=== PATIENT | female | born 1930 | race Caucasian/White ===

== ENCOUNTER 2016-10-14 11:06 | Emergency (ER) | payer MEDICARE, BC, MEDICAID ==
--- NOTE | 2016-10-14 12:02 | ER Document Report ---
ED General - General Mode of Arrival: Medic Information source: Patient, Relative TRAVEL OUTSIDE OF THE [place] IN LAST 30 DAYS: No - HPI Patient complains to provider of: Increased Heart Rate Onset: This morning Onset/Duration: Sudden, Better Associated symptoms: None <LIBERTY DUTTA - Last Filed: 10/14/16 12:09> <CAL,JOHN F - Last Filed: 10/14/16 15:00> - General Chief Complaint: Other Stated Complaint: HEART RATE PROBLEM Notes: Patient is an 86-year-old female presenting to the emergency department from [facility] with concerns of increased heart rate this morning when she was not on her oxygen. Patient's family members were worried because she felt dizzy and was laboring to breathe, although patient denies any of these symptoms. Patient states that she feels fine, and she is ready to leave. ( LIBERTY DUTTA) - Related Data Allergies/Adverse Reactions: Cephalosporins Allergy (Severe, Verified 10/14/16 11:26) Hives & Urticaria NSAIDS (Non-Steroidal Anti-Inflamma Allergy (Severe, Verified 10/14/16 11:26) Hives Iodinated Contrast Media - Oral and Allergy (Intermediate, Verified 10/14/16 11: 26) Facial swelling sulfamethoxazole [From Septra] Allergy (Intermediate, Verified 10/14/16 11:26) Generalized rash trimethoprim [From Septra] Allergy (Intermediate, Verified 10/14/16 11:26) Generalized rash Sulfa (Sulfonamide Antibiotics) Allergy (Verified 10/14/16 11:26) Past Medical History - General Information source: Patient, [facility] Records, Outside Facility Records - Social History Smoking Status: Never Smoker Frequency of alcohol use: None Drug Abuse: None Family History: Reviewed & Not Pertinent - Past Medical History Cardiac Medical History: Reports: Hx Atrial Fibrillation, Hx Congestive Heart Failure, Hx DVT, Hx Hypercholesterolemia, Hx Hypertension, Hx Heart Murmur Pulmonary Medical History: Reports: Hx Bronchitis, Hx Pneumonia Endocrine Medical History: Reports: Hx Diabetes Mellitus Type 2 Renal/ Medical History: Reports: Hx Kidney Stones GI Medical History: Reports: Hx Gastroesophageal Reflux Disease Musculoskeltal Medical History: Reports Hx Arthritis Psychiatric Medical History: Reports: Hx Depression Past Surgical History: Reports: Hx Appendectomy, Hx Cholecystectomy, Hx Hysterectomy, Hx Orthopedic Surgery - b/l knees, Hx Tonsillectomy - Immunizations Hx Diphtheria, Pertussis, Tetanus Vaccination: Yes Hx Pneumococcal Vaccination: 06/25/12 <LIBERTY DUTTA - Last Filed: 10/14/16 12:09> Review of Systems - Review of Systems Constitutional: No symptoms reported EENT: No symptoms reported Cardiovascular: No symptoms reported Respiratory: No symptoms reported Gastrointestinal: No symptoms reported Genitourinary: No symptoms reported Female Genitourinary: No symptoms reported Musculoskeletal: No symptoms reported Skin: No symptoms reported Hematologic/Lymphatic: No symptoms reported Neurological/Psychological: No symptoms reported -: Yes All other systems reviewed and negative <LIBERTY DUTTA - Last Filed: 10/14/16 12:09> Course <LIBERTY DUTTA - Last Filed: 10/14/16 12:09> - Laboratory Result Diagrams: 10/14/16 12:40 10/14/16 12:40 - Diagnostic Test Radiology reviewed: Image reviewed - Vascular congestion and cardiomegaly - EKG Interpretation by Me Rate: Normal Rhythm: A.Fib - Atrial fibrillation with rate 64-120, average 97. Borderline LVH with nonspecific ST T abnormalities some rounding consistent with digoxin use <GHADA FREDERICK - Last Filed: 10/14/16 15:00> - Re-evaluation Re-evalutation: 10/14/16 13:49 Patient's chest x-ray shows some vascular congestion and cardiomegaly. 10/14/16 14:54 Patient reexamined as she has been complaining of some sacral pain. X-rays negative. She is developing a decubiti in this region which is dressed. No signs of infection. Discussed with them further rolling techniques. She has a very sensitive balance of fluid with her CHF and her lower blood pressure already. She will need close monitoring of weights. 10/14/16 14:58 She has not been tachycardic here. Her digoxin level was good. (GHADA FREDERICK) - Vital Signs Vital signs: Temp Pulse Resp BP Pulse Ox 98.5 F 78 20 101/89 H 99 10/14/16 13:01 10/14/16 11:08 10/14/16 14:04 10/14/16 14:04 10/14/16 14:04 - Laboratory Laboratory results interpreted by me: 10/14/16 10/14/16 10/14/16 12:40 12:40 12:40 RBC 3.43 L Hgb 10.5 L Hct 31.8 L RDW 15.9 H PT 23.9 H Chloride 97 L Est GFR (Non-Af Amer) 57 L Glucose 126 H NT-Pro-B Natriuret Pep Digoxin 0.78 L 10/14/16 12:40 RBC Hgb Hct RDW PT Chloride Est GFR (Non-Af Amer) Glucose NT-Pro-B Natriuret Pep 4490 H Digoxin Discharge <LIBERTY DUTTA - Last Filed: 10/14/16 12:09> <GHADA FREDERICK - Last Filed: 10/14/16 15:00> - Discharge Clinical Impression: Tachycardia Congestive heart failure Qualifiers: Congestive heart failure type: diastolic Congestive heart failure chronicity: chronic Qualified Code(s): I50.32 - Chronic diastolic (congestive) heart failure Condition: Good Disposition: [facility] Additional Instructions: Return for worsening or concern. Scribe Attestation: 10/14/16 15:00 I personally performed the services described in the documentation, reviewed and edited the documentation which was dictated to the scribe in my presence, and it accurately records my words and actions. (GHADA FREDERICK) Scribe Documentation - Scribe Written by Carmen:: Liberty Dutta 10/14/2016 1201 acting as scribe for :: Cal <LIBERTY DUTTA - Last Filed: 10/14/16 12:09>
[2016-10-14 12:56] LABS: PROTHROMBIN TIME 23.9 SEC (11.4-15.4)
[2016-10-14 13:06] LABS: ABSOLUTE EOSINOPHILS # (AUTO) 0.3 10^3/uL (0.0-0.6); ABSOLUTE MONOCYTES (AUTO) 0.7 10^3/uL (0.1-1.4); ABSOLUTE NEUT (AUTO) 5.6 10^3/uL (1.7-8.2); BASOPHILS % (AUTO) 0.6 % (0-2); EOSINOPHILS % (AUTO) 3.8 % (0-6); HEMATOCRIT 31.8 % (36.0-47.0); HEMOGLOBIN 10.5 g/dL (12.0-15.5); HGB HCT DIFFERENCE -0.3; LYMPHOCYTES % (AUTO) 22.7 % (13-45); MEAN CORPUSCULAR HEMOGLOBIN 30.6 pg (27.0-33.4); MEAN CORPUSCULAR HGB CONC 33.1 g/dL (32.0-36.0); MEAN CORPUSCULAR VOLUME 93 fl (80-97); MONOCYTES % (AUTO) 7.8 % (3-13); RED BLOOD COUNT 3.43 10^6/uL (3.72-5.28); RED CELL DISTRIBUTION WIDTH 15.9 % (11.5-14.0); SEGMENTED NEUTROPHILS % (AUTO) 65.1 % (42-78); WHITE BLOOD COUNT 8.6 10^3/uL (4.0-10.5)
[2016-10-14 13:16] LABS: ANION GAP 12 (5-19); BLOOD UREA NITROGEN 15 mg/dL (7-20); CALCIUM 9.5 mg/dL (8.4-10.2); CARBON DIOXIDE 30 mmol/L (22-30); CHLORIDE 97 mmol/L (98-107); CREATININE RESULT 0.93 mg/dL (0.52-1.25); DIGOXIN 0.78 ng/mL (0.8-2.0); GLUCOSE 126 mg/dL (75-110); POTASSIUM 4.8 mmol/L (3.6-5.0); SODIUM 138.9 mmol/L (137-145)
[2016-10-14] MEDS ORDERED: FUROSEMIDE INJ/PF 20 MG/2 ML SDV IV ONE (13:51)
[2016-10-14] MEDS ORDERED: FUROSEMIDE 40 MG TABLET PO ONE (14:21)
[2016-10-14 17:03] VITALS: BP 124/75
--- NOTE | 2016-10-15 16:59 | EKG REPORT ---
SEVERITY:- ABNORMAL ECG - ATRIAL FIBRILLATION, V-RATE 64-120 PROBABLE LVH WITH SECONDARY REPOL ABNRM : Confirmed by: Hetal York MD 15-Oct-2016 16:57:45
== END 2016-10-14 17:04 ==
LOC: ER 11:06
DX: I50.32 Chronic diastolic (congestive) heart failure (principal); R00.0 Tachycardia, unspecified; R42 Dizziness and giddiness
CPT/HCPCS: 93005; 99285; 36415; 80162; 85025; 85610; 80048; 83880; 71010; 72220; 93010; A9270

== ENCOUNTER 2017-03-28 17:07 | Inpatient (IN) | payer MEDICARE, BC, MEDICAID ==
[2017-03-28] MEDS ORDERED: NORMAL SALINE 500 ML IV ONE (17:28)
--- NOTE | 2017-03-28 17:33 | ER Document Report ---
ED General - General Stated Complaint: ALTERED MENTAL STATUS Time Seen by Provider: 03/28/17 17:28 Notes: Shashi's note history limited secondary to altered mental status and lack of data for prehospital setting. Patient apparently was last seen normal at 2 PM and was noted to slump over during a meal. She has a history of an old stroke. There is no paperwork from the facility I do not know her medical history or medications. For some reason , I am not entirely clear, she was activated as a code stroke alert" on arrival secondary to last seen normal time of 2 but no one including nursing staff can tell me which clear deficit she had prompting this. TRAVEL OUTSIDE OF THE [place] IN LAST 30 DAYS: No - Related Data Allergies/Adverse Reactions: Cephalosporins Allergy (Severe, Verified 10/14/16 11:26) Hives & Urticaria NSAIDS (Non-Steroidal Anti-Inflamma Allergy (Severe, Verified 10/14/16 11:26) Hives Iodinated Contrast- Oral and IV Dye Allergy (Intermediate, Verified 10/14/16 11: 26) Facial swelling sulfamethoxazole [From Septra] Allergy (Intermediate, Verified 10/14/16 11:26) Generalized rash trimethoprim [From Septra] Allergy (Intermediate, Verified 10/14/16 11:26) Generalized rash Sulfa (Sulfonamide Antibiotics) Allergy (Verified 10/14/16 11:26) Past Medical History - General Cannot obtain history due to: Altered mental status - Social History Smoking Status: Unknown if Ever Smoked Family History: Reviewed & Not Pertinent - Past Medical History Cardiac Medical History: Reports: Hx Atrial Fibrillation, Hx Congestive Heart Failure, Hx DVT, Hx Hypercholesterolemia, Hx Hypertension, Hx Heart Murmur Denies: Hx Coronary Artery Disease Pulmonary Medical History: Reports: Hx Bronchitis, Hx Pneumonia Denies: Hx Tuberculosis Endocrine Medical History: Reports: Hx Diabetes Mellitus Type 2 Renal/ Medical History: Reports: Hx Kidney Stones GI Medical History: Reports: Hx Gastroesophageal Reflux Disease Musculoskeltal Medical History: Reports Hx Arthritis Psychiatric Medical History: Reports: Hx Depression Past Surgical History: Reports: Hx Appendectomy, Hx Cholecystectomy, Hx Hysterectomy, Hx Orthopedic Surgery - b/l knees, Hx Tonsillectomy. Denies: Hx Pacemaker - Immunizations Hx Diphtheria, Pertussis, Tetanus Vaccination: Yes Hx Pneumococcal Vaccination: 06/25/12 Review of Systems - Review of Systems Notes: REVIEW OF SYSTEMS PHYSICAL EXAMINATION General: Pale elderly Head: Atraumatic, normocephalic ENT: Mouth normal, oropharynx moist, unable to visualize posterior oropharynx Eyes: Conjunctiva normal, pupils equal, lids normal Neck: No JVD, supple, no guarding CVS: Normal rate, regular rhythm, no murmurs Resp: No resp distress, equal and normal breath sounds bilaterally GI: Nondistended, soft, no tenderness to palpation, no rebound or guarding Ext: No deformities, no edema, normal range of motion in upper and lower ext Back: No CVA or midline TTP Skin: No rash, warm Lymphatic: No lymphadeopathy noted Neuro: Awake, alert. Face symmetric. GCS 15. -: Yes ROS unobtainable due to patient's medical condition Course - Re-evaluation Re-evalutation: 03/28/17 17:37 Patient with a history of multiple medical issues including multi valvular cardiac disease diabetes old stroke currently in assisted living DNR/DNI presents with what appears to be a new right sided MCA syndrome. She is unable to tell a story, there is minimal records from the outside facility and I do not know what meds she is on. Her differential is broad but also includes recrudescence of old stroke, bleed, sepsis, I try to [place]. She is normoglycemic at this time. She will be given IV fluids empirically 500 cc, her scan has been done in the community with radiology who states that he sees only a right-sided old stroke and possibly hyperattenuated area in the left frontal which he does not truly think is a petechial hemorrhage but this will be and is read. I spoke with Dr. Plascencia from neurology by phone. Given the fact that the time of onset is quite unclear, we do not know if she is on anticoagulation, or no her labs, as well as her general health status and inability to make decisions, we both believe it is [place] not to give her TPA at this time. I will admit her to the hospitalist for further monitoring attempt to contact her family. He also noted to have atrial fibrillation with rapid ventricular response. This likely a symptom rather than the actual cause of her symptoms. She will be hydrated encases from dehydration. There is some ST depression which may reflect acute coronary syndrome versus demand ischemia. Given her possible petechial hemorrhage I will hold aspirin, and a troponin. 03/28/17 17:41 03/28/17 18:19 Patient's labs are pending. I am looking at her [facility] records which are now available. It shows that she is on metoprolol and Xarelto. We will give her metoprolol to slow her rate. Will admit to hospital. 03/28/17 19:15 Spoke with patient's son who is her power of tank insulator rubber and the compounding pharmacy technician here at the hospital. He thinks some of her clinical picture could be due to [place]. I tested this but stated she will still need admission for observation which he agrees to. They requested a half dose of metoprolol be given. This was given in 2.5 dose. 03/28/17 19:[address] Mata. Agrees with plan as above. - Laboratory Result Diagrams: 03/28/17 17:25 03/28/17 17:25 Laboratory results interpreted by me: 03/28/17 03/28/17 03/28/17 17:25 17:25 17:25 WBC 12.1 H Hgb 11.5 L Hct 34.6 L RDW 15.5 H PT 19.7 H APTT 36.6 H Sodium 136.7 L Chloride 95 L Carbon Dioxide 33 H Est GFR (Non-Af Amer) 59 L Glucose 179 H Direct Bilirubin 0.5 H Creatine Kinase 28 L - EKG Interpretation by Me EKG shows normal: ST-T Waves Rate: Tachycardia Rhythm: A.Fib When compared to previous EKG there are: Previous EKG unavailable Critical Care Note - Critical Care Note Total time excluding time spent on procedures (mins): 40 Comments: The above patient is critically ill. Not including procedures, but including direct re-evaluations, speaking with patient and/or consultants, interpreting results, and documenting, I spent the total amount of minute listed listed above on critical care time Discharge - Discharge Clinical Impression: Stroke Qualifiers: CVA mechanism: other Qualified Code(s): I63.8 - Other cerebral infarction Condition: Critical Disposition: ADMITTED INPATIENT Admitting Provider: Hospitalist Unit Admitted: Telemetry Referrals: MICHAEL COSTA MD [Primary Care Provider] - Follow up as needed
--- NOTE | 2017-03-28 17:36 | RADIOLOGY REPORT (SQ) ---
EXAM DESCRIPTION: CT HEAD WITHOUT COMPLETED DATE/TIME: 03/28/2017 5:13 pm REASON FOR STUDY: STROKE COMPARISON: 01/25/2014 TECHNIQUE: Axial images acquired through the brain without intravenous contrast. Images reviewed wi th bone, brain and subdural windows. Images stored on PACS. All CT scanners at this facility use dose modulation, iterative reconstruction, and/or weight based d osing when appropriate to reduce radiation dose to as low as reasonably achievable (ALARA). [facility]: Dose Right [facility]: CareDose [facility]: Dose Right [facility]: Teradose 4D [facility]: [employer] RADIATION DOSE: TOTAL EXAM DLP: 1034 mGy cm LIMITATIONS: None. FINDINGS: VENTRICLES: Prominent ventricles secondary to involutional atrophy. CEREBRUM: There is an old right occipital infarct. There are extensive areas of decreased attenuatio n in the white matter tracts. There is no definite acute hemorrhage, contusion, or subdural hematoma . There is a limited area of increased attenuation in the anterior aspect the left adventist lobe seen best on image 13 series 2. This appearance is felt to be artifactual rather than represent petechial hemorrhage. There is no midline shift or mass effect. Cortical atrophy is present. CEREBELLUM: No masses. No hemorrhage. No alteration of density. No evidence for acute infarction. EXTRAAXIAL SPACES: No fluid collections. No masses. ORBITS AND GLOBE: No intra- or extraconal masses. Normal contour of globe without masses. CALVARIUM: No fracture. PARANASAL SINUSES: No fluid or mucosal thickening. SOFT TISSUES: No mass or hematoma. OTHER: No other significant finding. IMPRESSION: Involutional changes of aging with chronic microvascular ischemia and old right occipita l infarct. Cannot entirely exclude a small area of petechial hemorrhage in the anterior aspect of th e left temporal lobe. See above discussion. EVIDENCE OF ACUTE STROKE: NO. COMMENT: Findings were discussed with the ordering physician at 1730 hours on this date. Quality ID # [id number]: Final reports with documentation of one or more dose reduction techniques (e.g., Au tomated exposure control, adjustment of the mA and/or kV according to patient size, use of iterative reconstruction technique) TECHNICAL DOCUMENTATION: JOB ID: [id number]- All Rights Reserved
--- NOTE | 2017-03-28 17:38 | RADIOLOGY REPORT (SQ) ---
EXAM DESCRIPTION: CHEST SINGLE VIEW COMPLETED DATE/TIME: 03/28/2017 5:17 pm REASON FOR STUDY: STROKE COMPARISON: 10/14/2016 EXAM PARAMETERS: NUMBER OF VIEWS: One view. TECHNIQUE: Single frontal radiographic view of the chest acquired. RADIATION DOSE: NA LIMITATIONS: None. FINDINGS: LUNGS AND PLEURA: Chronic interstitial lung changes are seen. There is no pulmonary infil trate or pleural effusion. MEDIASTINUM AND HILAR STRUCTURES: No masses. Contour normal. HEART AND VASCULAR STRUCTURES: Cardiomegaly with mild pulmonary vascular congestion. There is no pul monary edema. BONES: No acute findings. HARDWARE: None in the chest. OTHER: No other significant finding. IMPRESSION: Cardiomegaly with mild pulmonary vascular congestion but no pulmonary edema. Chronic nery ng changes. TECHNICAL DOCUMENTATION: JOB ID: [id number]
[2017-03-28 17:50] LABS: PARTIAL THROMBOPLASTIN TIME 36.6 SEC (23.5-35.8)
[2017-03-28 17:52] LABS: PROTHROMBIN TIME 19.7 SEC (11.4-15.4)
[2017-03-28 17:55] LABS: ABSOLUTE BASOPHILS # (AUTO) 0.1 10^3/uL (0.0-0.2); ABSOLUTE EOSINOPHILS # (AUTO) 0.1 10^3/uL (0.0-0.6); ABSOLUTE LYMPHOCYTES (AUTO) 3.9 10^3/uL (0.5-4.7); ABSOLUTE MONOCYTES (AUTO) 0.6 10^3/uL (0.1-1.4); ABSOLUTE NEUT (AUTO) 7.3 10^3/uL (1.7-8.2); BASOPHILS % (AUTO) 0.9 % (0-2); EOSINOPHILS % (AUTO) 1.2 % (0-6); HEMATOCRIT 34.6 % (36.0-47.0); HEMOGLOBIN 11.5 g/dL (12.0-15.5); HGB HCT DIFFERENCE -0.1; LYMPHOCYTES % (AUTO) 31.9 % (13-45); MEAN CORPUSCULAR HGB CONC 33.2 g/dL (32.0-36.0); MEAN CORPUSCULAR VOLUME 90 fl (80-97); MONOCYTES % (AUTO) 5.3 % (3-13); RED BLOOD COUNT 3.82 10^6/uL (3.72-5.28); RED CELL DISTRIBUTION WIDTH 15.5 % (11.5-14.0); SEGMENTED NEUTROPHILS % (AUTO) 60.7 % (42-78); WHITE BLOOD COUNT 12.1 10^3/uL (4.0-10.5)
[2017-03-28 18:15] LABS: ALANINE AMINOTRANSFERASE 24 U/L (9-52); ALBUMIN 3.9 g/dL (3.5-5.0); ALKALINE PHOSPHATASE 73 U/L (38-126); ANION GAP 9 (5-19); ASPARTATE AMINO TRANSFERASE 22 U/L (14-36); BILIRUBIN,DIRECT 0.5 mg/dL (0.0-0.4); BILIRUBIN,TOTAL 0.8 mg/dL (0.2-1.3); BLOOD UREA NITROGEN 19 mg/dL (7-20); CARBON DIOXIDE 33 mmol/L (22-30); CHLORIDE 95 mmol/L (98-107); CREATINE KINASE 28 U/L (30-135); GLUCOSE 179 mg/dL (75-110); POTASSIUM 4.8 mmol/L (3.6-5.0); SODIUM 136.7 mmol/L (137-145); TOTAL PROTEIN 7.5 g/dL (6.3-8.2)
[2017-03-28] MEDS ORDERED: METOPROLOL TARTRATE PF/INJ 5 MG/5 ML SDV IV ONE ×2 (18:18→19:16)
[2017-03-28 18:26] LABS: CREATINE KINASE MB 0.87 ng/mL (<4.55); TROPONIN I 0.032 ng/mL
[2017-03-28 20:04] LABS: ADD ON TESTING BLD IN LAB ACKNOWLEDGE
[2017-03-28 20:16] LABS: MAGNESIUM 1.8 mg/dL (1.6-2.3)
[2017-03-28 20:16] LABS: APPEARANCE,URINE CLOUDY; BILIRUBIN,URINE NEGATIVE (NEGATIVE); GLUCOSE, URINE NEGATIVE (NEGATIVE); KETONES,URINE NEGATIVE (NEGATIVE); LEUKOCYTE ESTERASE,URINE SMALL (NEGATIVE); NITRITE,URINE NEGATIVE (NEGATIVE); PROTEIN,URINE NEGATIVE (NEGATIVE); URINE SPECIFIC GRAVITY 1.005; UROBILINOGEN,URINE NEGATIVE mg/dL (<2.0)
[2017-03-28] MEDS ORDERED: DEXTROSE 50%-WATER 25 GM/50 ML DISP.SYRIN IV PRN ×2 (23:44)
[2017-03-28] MEDS ORDERED: DEXTROSE 40% GEL 15 GM TUBE PO PRN ×2 (23:44)
[2017-03-28] MEDS ORDERED: GLUCAGON,HUMAN RECOMB 1 MG INJ IM PRN (23:44)
[2017-03-28] MEDS ORDERED: INSULIN LISPRO 100 UNIT/ML 3 ML VIAL SUBCUT PRN (23:44)
[2017-03-29] MEDS ORDERED: ENALAPRILAT DIHYDRATE INJ/PF 1.25 MG/1 ML SDV IV PRN (01:15)
[2017-03-29] MEDS ORDERED: ACETAMINOPHEN 650 MG SUPP.RECT PR PRN (01:40)
[2017-03-29] MEDS ORDERED: PROMETHAZINE HCL 25 MG SUPP.RECT PR PRN ×2 (01:41→17:21)
[2017-03-29] MEDS: NORMAL SALINE 1000 ML 1,000 ML IV PRN ×2 (02:49→04:13)
[2017-03-29 06:32] LABS: ABSOLUTE BASOPHILS # (AUTO) 0.1 10^3/uL (0.0-0.2); ABSOLUTE LYMPHOCYTES (AUTO) 1.3 10^3/uL (0.5-4.7); ABSOLUTE MONOCYTES (AUTO) 0.3 10^3/uL (0.1-1.4); ABSOLUTE NEUT (AUTO) 8.2 10^3/uL (1.7-8.2); HEMATOCRIT 30.2 % (36.0-47.0); HEMOGLOBIN 10.4 g/dL (12.0-15.5); LYMPHOCYTES % (AUTO) 12.8 % (13-45); MEAN CORPUSCULAR HEMOGLOBIN 30.5 pg (27.0-33.4); MEAN CORPUSCULAR HGB CONC 34.4 g/dL (32.0-36.0); MEAN CORPUSCULAR VOLUME 89 fl (80-97); MONOCYTES % (AUTO) 3.1 % (3-13); RED BLOOD COUNT 3.41 10^6/uL (3.72-5.28); RED CELL DISTRIBUTION WIDTH 15.8 % (11.5-14.0); SEGMENTED NEUTROPHILS % (AUTO) 83.1 % (42-78); WHITE BLOOD COUNT 9.9 10^3/uL (4.0-10.5)
[2017-03-29 06:47] LABS: ANION GAP 8 (5-19); BLOOD UREA NITROGEN 18 mg/dL (7-20); CALCIUM 9.4 mg/dL (8.4-10.2); CARBON DIOXIDE 32 mmol/L (22-30); CHLORIDE 96 mmol/L (98-107); CHOLESTEROL 222.85 mg/dL (0-200); CREATININE RESULT 0.89 mg/dL (0.52-1.25); Direct HDL 38 mg/dL (>40); GLUCOSE 214 mg/dL (75-110); POTASSIUM 4.1 mmol/L (3.6-5.0); SODIUM 136.3 mmol/L (137-145); TRIGLYCERIDES 125 mg/dL (<150)
[2017-03-29 06:57] LABS: DIRECT LDL 159 mg/dL (<100)
[2017-03-29] MEDS ORDERED: AZTREONAM INJ 1 GM VIAL IV SCH (07:00)
[2017-03-29] MEDS ORDERED: LABETALOL HCL INJ 20 MG/4 ML DISP.SYRIN IV PRN (07:53)
[2017-03-29] MEDS ORDERED: ALPRAZOLAM 0.25 MG TABLET PO PRN (07:53)
[2017-03-29] MEDS ORDERED: POLYVINYL ALCOHOL 1.4% OPH SOLN 15 ML OU PRN (07:53)
--- NOTE | 2017-03-29 07:54 | PDOC H&P ---
History of Present Illness Admission Date/PCP: 03/29/17 01:15 MICHAEL COSTA Patient complains of: Altered mental status History of Present Illness: MEDINA GILBERT is a 87 year old female with a rather complicated chronic medical history, to be better delineated under past medical history, and with a reported history of a prior stroke which has left her with left- sided weakness who presents to the emergency room for evaluation of above complaint. Patient has been discussed with emergency room physician who evaluated the patient. Patient, while maintaining her airway, is poorly responsive to her name being called and is able to provide no history whatsoever in terms of acute or chronic events, review of systems, personal habits, family history, etc. No friends or family are present. Old inpatient records are reviewed. According to emergency room notes, she was last seen normal approximately 2 PM on the fourth. Was noted to have slumped over during a meal. No further information available this point in time. According to my discussion with emergency room physician, he found her to have right-sided weakness. Was noted to be in atrial fibrillation with rapid ventricular response, which responded nicely to low-dose intravenous metoprolol. Has chronic atrial fibrillation, on Xarelto for same. Hospitalized on our service the through 16 December of last year with final diagnoses including critical aortic stenosis, severe mitral and tricuspid regurgitation, systolic congestive heart failure, diabetes mellitus, hypertension, history of DVT atrial fibrillation and anemia. Osteoarthritis also. History and physical and transfer summary have been reviewed. Dictation via voice recognition software. Laboratory results are listed in [employer] and are reviewed. X-ray summary results are listed below, with full report(s) reviewed. . EKG reviewed. Social history/personal habits: Reportedly lives at an assisted living center. No further information available this point in time. Allergies/adverse reactions are listed in [employer] and are reviewed. Home medications initially autopopulated into [employer] may not accurately reflect patient's true medications, dosages, and/or frequencies. biosolids management technician to reconcile medications. Unfortunately, patient cannot provide any information related to medications/ dosages/frequencies. REVIEW OF SYSTEMS: See history and present illness. No further information available this point in time. PHYSICAL EXAMINATION: 4 feet 11 inches tall. 63.9 kg. BMI 28.5 kg/m. Blood pressure 157/94. Pulse 114 and slightly irregular. Temperature 97.8. Respirations are 16 and unlabored. 94% saturation on 2 L oxygen per nasal cannula. Somewhat overweight otherwise well-nourished well-developed elderly female who appears approximately her stated age. Somnolent. Does not respond when her name is called. However, does perform slight left handgrip and wiggling of her left toes upon request. Floor nurse Liz is present. Skin is warm and dry. No grossly obvious evidence of rash in areas of skin examined. No subcutaneous nodules palpated. ENT: Hearing difficult to adequately evaluate due to her current status. No shay sign. Eyes: No scleral icterus. Pupils equal and reactive to light at 4 mm. Sublimity conjunctivae. No raccoon eyes. Neck is nontender to palpation. Midline trachea. No palpable thyroid nodule mass enlargement or tenderness. Lymphatic: No palpable cervical or clavicular nodes. Neck and lymphatic exams limited by patient body habitus. Psychiatric: Cannot be adequately evaluated due to her current status. See above comments and History and Present Illness. Lungs: Auscultation reveals clear and equal breath sounds bilaterally. No use of accessory respiratory muscles. Cardiovascular: Heart regular rate and rhythm, without gallop murmur or rub. No carotid or abdominal aortic bruits. Mild bilateral symmetric ankle and pedal edema. Faintly palpable dorsalis pedis pulses. Abdomen:soft slightly distended nontender with positive bowel sounds. Unable to adequately evaluate abdomen for masses or organomegaly due to distention. Extremities: Hands and feet are warm and dry. No calf tenderness to compression. No grossly obvious visual evidence of calf swelling. Gentle manipulation of upper and lower extremities fails to reveal any obvious evidence of injury or instability to involved major joints. Neuro: Cranial Nerves cannot be adequately evaluated due to her current status. Light touch cannot be adequately evaluated due to her current status. Slight left hand java software developer and slight wiggling of the left toes to voice request. No response when similar request made for the right side. Patellar reflexes absent. Absent Babinski. No nystagmus. Past Medical History Past Medical History: Information per current and old records. Patient can't provide any information. Cardiac Medical History: Reports: Atrial Fibrillation, Congestive Heart Failure , DVT, Hyperlipidema, Hypertension, Other - Critical aortic stenosis with severe mitral and tricuspid regurgitation Denies: Coronary Artery Disease Pulmonary Medical History: Reports: Bronchitis, Pneumonia Denies: Tuberculosis Neurological Medical History: Reports: Ischemic CVA Endocrine Medical History: Reports: Diabetes Mellitus Type 2 GI Medical History: Reports: Gastroesophageal Reflux Disease Musculoskeltal Medical History: Reports: Arthritis Psychiatric Medical History: Reports: General Anxiety Disorder Denies: Depression Hematology: Reports: Anemia Past Surgical History Past Surgical History: Information per current and old records. Patient can't provide any information. Past Surgical History: Reports: Appendectomy, Cholecystectomy, Hysterectomy, Orthopedic Surgery - b/l knees, Tonsillectomy Social History Information Source: Emergency Med Personnel, [facility] Records Lives with: Skilled Nursing Smoking Status: Never Smoker Frequency of Alcohol Use: None Hx Recreational Drug Use: No Drugs: None Hx Prescription Drug Abuse: No - Advance Directive Resuscitation Status: Do Not Resuscitate Surrogate healthcare decision maker:: Likely her son Patricio pharmacist at [facility] Family History Family History: Reviewed & Not Pertinent Parental Family History Reviewed: No - Patient not able to provide any information. Children Family History Reviewed: No - Patient not able to provide any information. Sibling(s) Family History Reviewed.: No - Patient not able to provide any information. Medication/Allergy Home Medications: Alprazolam [Xanax 0.25 mg Tablet] 0.25 mg PO HSP PRN 03/28/17 Cholecalciferol (Vitamin D3) [Vitamin D3 2000 unit Tablet] 2,000 unit PO DAILY 03/28/17 Citalopram Hydrobromide [Celexa 20 mg Tablet] 20 mg PO DAILY 03/28/17 Cyanocobalamin (Vitamin B-12) [Vitamin B-12 1000 Mcg Tablet] 1 tab PO DAILY 10/09 Digoxin [Lanoxin 0.125 mg Tablet] 0.125 mg PO Q48H 03/28/17 Docusate Sodium [Colace 100 mg Capsule] 100 mg PO DAILY 03/28/17 Furosemide [Lasix 40 mg Tablet] 40 mg PO DAILY 03/28/17 Hydrocodone/Acetaminophen [[place] 5-325 mg Tablet] 0.5 tab PO BIDP PRN 03/28/17 Losartan Potassium [Cozaar 50 mg Tablet] 50 mg PO NOON 03/28/17 Metformin HCl [Glucophage 500 mg Tablet] 500 mg PO BIDBS 03/28/17 Metoprolol Succinate [Toprol Xl 25 mg Tab.sr] 25 mg PO Q12 03/28/17 Omeprazole 20 mg PO QAM 03/28/17 Polyvinyl Alcohol [Liquitears 1.4% Ophth Soln 15 ml] 1 drop OU HSP PRN 03/28/17 Polyvinyl Alcohol [Liquitears 1.4% Ophth Soln 15 ml] 1 drop OU QID 03/28/17 Rivaroxaban [Xarelto 15 mg Tablet] 15 mg PO QAM 03/28/17 Allergies/Adverse Reactions: Cephalosporins Allergy (Severe, Verified 03/28/17 20:06) Hives & Urticaria NSAIDS (Non-Steroidal Anti-Inflamma Allergy (Severe, Verified 03/28/17 20:06) Hives Iodinated Contrast- Oral and IV Dye Allergy (Intermediate, Verified 03/28/17 20: 06) Facial swelling sulfamethoxazole [From Febra] Allergy (Intermediate, Verified 03/28/17 20:06) Generalized rash trimethoprim [From Febra] Allergy (Intermediate, Verified 03/28/17 20:06) Generalized rash Sulfa (Sulfonamide Antibiotics) Allergy (Verified 03/28/17 20:06) Physical Exam Vital Signs: Temp Pulse Resp BP Pulse Ox 99.1 F 127 H 22 H 185/95 H 98 03/29/17 04:00 03/29/17 04:00 03/29/17 04:00 03/29/17 04:08 03/29/17 04:00 Intake & Output 03/28/17 03/29/17 03/30/17 00:59 00:59 00:59 Intake Total 220 Balance 220 Weight 63.9 kg Results Laboratory Results: 03/29/17 06:18 03/29/17 06:18 03/29/17 03/29/17 06:18 06:18 WBC 9.9 RBC 3.41 L Hgb 10.4 L Hct 30.2 L MCV 89 MCH 30.5 MCHC 34.4 RDW 15.8 H Plt Count 292 Seg Neutrophils % 83.1 H Lymphocytes % 12.8 L Monocytes % 3.1 Eosinophils % 0.0 Basophils % 1.0 Absolute Neutrophils 8.2 Absolute Lymphocytes 1.3 Absolute Monocytes 0.3 Absolute Eosinophils 0.0 Absolute Basophils 0.1 Sodium 136.3 L Potassium 4.1 Chloride 96 L Carbon Dioxide 32 H Anion Gap 8 BUN 18 Creatinine 0.89 Est GFR ( Amer) > 60 Est GFR (Non-Af Amer) > 60 Glucose 214 H Calcium 9.4 Triglycerides 125 Cholesterol 222.85 H LDL Cholesterol Direct 159 H VLDL Cholesterol 25.0 HDL Cholesterol 38 L Impressions: Chest X-Ray 03/28/17 00:00 IMPRESSION: Cardiomegaly with mild pulmonary vascular congestion but no pulmonary edema. Chronic lung changes. Head CT 03/28/17 00:00 IMPRESSION: Involutional changes of aging with chronic microvascular ischemia and old right occipital infarct. Cannot entirely exclude a small area of petechial hemorrhage in the anterior aspect of the left temporal lobe. See above discussion. EVIDENCE OF ACUTE STROKE: NO. Assessment & Plan - Diagnosis (1) Anticoagulated Is this a current diagnosis for this admission?: Yes Plan: Resume home medications as appropriate once these have been determined and reviewed. Please refer to comments made by radiologist on her CT scan of brain concerning a small area that could possibly be petechial hemorrhage, although overall he felt this was artifact. Emergency room physician also discussed this with radiologist. Discussed with day hospitalist team. (2) DNR (do not resuscitate) Is this a current diagnosis for this admission?: Yes Plan: Portable document on chart. Will honor this directive. (3) Right hemiplegia Is this a current diagnosis for this admission?: Yes (4) Acute focal neurological deficit Is this a current diagnosis for this admission?: Yes Plan: Patient will be placed admitted under CVA/TIA protocol. Multiple imaging procedures, intracranial, vascular, and cardiac. lipid panel. Mild permissive hypertension, with adjustment of upper parameters due to her anticoagulated status. Knee high SCDs for DVT prophylaxis; with patient on Xarelto, will forego Lovenox or heparin at this point in time.. Time spent in evaluation and management of patient: 65 minutes (5) History of DVT (deep vein thrombosis) Is this a current diagnosis for this admission?: Yes (6) Acute encephalopathy Is this a current diagnosis for this admission?: Yes Plan: Hopefully will improve with time and treatment. Likely secondary in large part to suspected stroke; suspected urinary tract infection may also be playing a part. (7) UTI (urinary tract infection) Qualifiers: Urinary tract infection type: site unspecified Is this a current diagnosis for this admission?: Yes Plan: Blood and urine cultures. Aztreonam. (8) Atrial fibrillation Qualifiers: Atrial fibrillation type: chronic Qualified Code(s): I48.2 - Chronic atrial fibrillation Is this a current diagnosis for this admission?: Yes Plan: Resume home medications as appropriate once these have been determined and reviewed. (9) Diabetes mellitus Qualifiers: Diabetes mellitus type: type 2 Diabetes mellitus complication status: with unspecified complications Diabetes mellitus termite helper insulin use: unspecified termite helper insulin use status Qualified Code(s): E11.8 - Type 2 diabetes mellitus with unspecified complications Is this a current diagnosis for this admission?: Yes Plan: Accu-Cheks with appropriate sliding scale coverage. Resume home medications as appropriate once these have been determined and reviewed. (10) Atrial fibrillation with RVR Is this a current diagnosis for this admission?: Yes Plan: Responded nicely to IV fluids and parenteral metoprolol. (11) Valvular heart disease Is this a current diagnosis for this admission?: Yes - Time Time Spent: 50 to 70 Minutes Anticipated discharge: SNF Within: within 72 hours - Inpatient Certification Based on my medical assessment, after consideration of the patient's comorbidities, presenting symptoms, or acuity I expect that the services needed warrant INPATIENT care.: Yes I certify that my determination is in accordance with my understanding of Medicare's requirements for reasonable and necessary INPATIENT services [42 CFR 412.3e].: Yes Medical Necessity: Significant Comorbidiites Make Outpatient Treatment Too Risky , Need For IV Fluids, Need For Continuous Telemetry Monitoring, Need for Neurological Checks, Risk of Diagnosis Which Will Require Inpatient Eval/Care/ Monitoring Post Hospital Care: D/C or Transfer Summary - Plan Summary Plan Summary: Patient currently completely n.p.o., due to food from her midday meal being found pocketed in her mouth during examination. Speech therapy consult.
[2017-03-29] MEDS ORDERED: DIGOXIN INJ 0.5 MG/2 ML AMPULE IV SCH (08:00)
[2017-03-29] MEDS ORDERED: LANSOPRAZOLE 15 MG TAB.RAP.DR PO ONE (09:00)
--- NOTE | 2017-03-29 09:09 | EKG REPORT ---
SEVERITY:- ABNORMAL ECG - ATRIAL FIBRILLATION, V-RATE 101-172 PROBABLE LVH WITH SECONDARY REPOL ABNRM ST DEPRESSION, PROBABLY RATE RELATED : Confirmed by: Hetal York MD 29-Mar-2017 09:08:20
[2017-03-29] MEDS ORDERED: AZTREONAM 1 GM in DEXTROSE 5%-WATER 50 ML IV SCH (10:00)
[2017-03-29] MEDS ORDERED: CYANOCOBALAMIN (VITAMIN B-12) 1,000 MCG TABLET PO SCH (10:00)
[2017-03-29] MEDS ORDERED: CHOLECALCIFEROL (D3) 1,000 UNIT TABLET PO SCH (10:00)
[2017-03-29] MEDS ORDERED: DOCUSATE SODIUM 100 MG CAPSULE PO SCH (10:00)
[2017-03-29] MEDS ORDERED: (PENDING PHARMACY ID) (Cholecalciferol (Vitamin D3) [Vitamin D3 2000 Unit Tablet] 2,000 UN PO SCH (10:00)
[2017-03-29] MEDS ORDERED: FUROSEMIDE 40 MG TABLET PO SCH (10:00)
[2017-03-29] MEDS ORDERED: CITALOPRAM HYDROBROMIDE 20 MG TABLET PO SCH (10:00)
--- NOTE | 2017-03-29 11:17 | RADIOLOGY REPORT (SQ) ---
EXAM DESCRIPTION: CAROTID DOPPLER COMPLETED DATE/TIME: 03/29/2017 10:15 am REASON FOR STUDY: tia vs cva COMPARISON: None. TECHNIQUE: Grayscale ultrasound, Doppler velocity and spectra, and color Doppler images acquired of the extra-cranial carotid and vertebral arteries. Images stored on PACS. LIMITATIONS: Patient motion FINDINGS: RIGHT CAROTID CCA Velocities: Within normal limits. ICA Velocities Peak systolic 1.02 m/s. End diastolic 0.80 m/s. Proximal ICA/CCA peak systolic ratio 1.3 There is significant plaque at the right internal carotid artery. Velocities could not be accurately assessed due to patient motion. Recommend MRA or CTA for further characterization. LEFT CAROTID CCA Velocities: Within normal limits. ICA Velocities Peak systolic 0.62 m/s. End diastolic 0.14 m/s. Proximal ICA/CCA peak systolic ratio 1.4. Spectra normal. No significant plaque. VERTEBRAL ARTERIES: Antegrade flow. Normal waveforms. SUBCLAVIAN ARTERIES: No finding. OTHER: No other significant finding. IMPRESSION: Limited evaluation of the right internal carotid artery secondary to patient motion. Re commend CTA or MRA for further characterization. There is significant plaque. There is no hemodynam ically significant stenosis on the left. COMMENT: Quality ID #[id number]: Velocity criteria are extrapolated from the diameter data as defined by t he Society of Radiologists in Ultrasound Consensus Conference. Radiology 2003: 229; 340-346. TECHNICAL DOCUMENTATION: JOB ID: [id number] [employer]- All Rights Reserved
[2017-03-29] MEDS: POLYVINYL ALCOHOL 1.4% OPH SOLN 15 ML OU SCH ×4 (11:59→22:07)
[2017-03-29] MEDS ORDERED: LOSARTAN POTASSIUM 50 MG TABLET PO SCH (12:00)
--- NOTE | 2017-03-29 13:02 | XCELERA REPORT ---
[address] [address] Transthoracic Echocardiogram Report Name: MEDINA GILBERT Age: 87 yrs Gender: Female : 1930 Patient Status: Inpatient Patient Location: [address] [place] [address] Study Date: 03/29/2017 08:18 AM Height: 59 in Weight: 137 lb BSA: 1.6 m2 Procedure: A complete two-dimensional transthoracic echocardiogram was performed (2D, M-mode, spectral and color flow Doppler). The study was technically difficult with many images being suboptimal in quality. Reason For Study: tia vs cva Ordering Physician: NTIIN HILL Performed By: Gloria Montgomery Interpretation Summary The study was technically difficult with many images being suboptimal in quality. The left ventricular ejection fraction is preserved. Doppler measurements suggest reversible restrictive left ventricular relaxation, which is associated with grade III/IV or moderate diastolic dysfunction There is moderate concentric left ventricular hypertrophy. The left ventricle is grossly normal size. Regional wall motion abnormalities cannot be excluded due to limited visualization. Not all wall segments were well visualized. The right ventricle is mild to moderately dilated. Right ventricular function cannot be assessed due to poor image quality. The left atrium is moderately dilated. The right atrium is moderately dilated. There is a moderate to severe amount of mitral regurgitation There is no mitral valve stenosis. There is moderate to severe aortic stenosis There is a peak gradient of 55-60, mean 30-35 mm of Hg. There is a mild amount of aortic regurgitation There is a mild amount of tricuspid regurgitation Right ventricular systolic pressure is estimated to be elevated at 40- 50mmHg. There is moderate pulmonary hypertension by echo Patient in A Fib during the study. No definite cardiac source of CVA/TIA noted on this particular trans- thoracic study. Consider AKSHAT if clinically indicated. May consider mobile cardiac telemetry monitoring (MCT) for ruling out transient AFIB. MMode/2D Measurements & Calculations RVDd: 2.5 cm LVIDd: 3.5 cm FS: 13.8 % Ao root diam: 2.4 cm IVSd: 1.3 cm LVIDs: 3.0 cm EDV(Teich): 50.8 ml LVPWd: 1.3 cm ESV(Teich): 35.4 ml Ao root area: 4.4 cm2 EF(Teich): 30.3 % LA dimension: 4.4 cm LVOT diam: 1.6 cm LVOT area: 2.1 cm2 Doppler Measurements & Calculations MV E max thony: MV P1/2t max thony: Ao V2 max: AI max thony: 148.6 cm/sec 148.6 cm/sec 382.6 cm/sec 370.9 cm/sec MV P1/2t: 45.7 msec Ao max PG: AI max PG: MVA(P1/2t): 4.8 cm2 58.6 mmHg 55.0 mmHg MV dec slope: Ao V2 mean: AI dec slope: 952.6 cm/sec2 272.0 cm/sec 285.9 cm/sec2 Ao mean PG: AI P1/2t: 33.2 mmHg 380.0 msec Ao V2 VTI: 69.9 cm RENEE(I,D): 0.40 cm2 RENEE(V,D): 0.36 cm2 LV V1 max PG: SV(LVOT): 27.9 ml PA V2 max: TR max thony: 1.7 mmHg 54.8 cm/sec 319.1 cm/sec LV V1 mean PG: PA max PG: TR max P.0 mmHg 1.2 mmHg 40.7 mmHg LV V1 max: 66.1 cm/sec LV V1 mean: 46.6 cm/sec LV V1 VTI: 13.5 cm Left Ventricle The left ventricle is grossly normal size. There is moderate concentric left ventricular hypertrophy. The left ventricular ejection fraction is preserved. Doppler measurements suggest reversible restrictive left ventricular relaxation, which is associated with grade III/IV or moderate diastolic dysfunction. Regional wall motion abnormalities cannot be excluded due to limited visualization. Not all wall segments were well visualized. Right Ventricle The right ventricle is mild to moderately dilated. There is normal right ventricular wall thickness. Right ventricular function cannot be assessed due to poor image quality. Atria The right atrium is moderately dilated. The left atrium is moderately dilated. Interarterial septum not well visualized and not well dopplered. Cannot comment on ASD/PFO presence. Mitral Valve There is mild to moderate mitral leaflet calcification. There is moderate mitral annular calcification. There is no mitral valve stenosis. There is a moderate to severe amount of mitral regurgitation. Aortic Valve The aortic valve is heavily calcified. There is moderate to severe aortic stenosis. There is a peak gradient of 55-60, mean 30-35 mm of Hg. There is a mild amount of aortic regurgitation. Tricuspid Valve The tricuspid valve is not well visualized secondary to technical limitations. There is no tricuspid stenosis. There is a mild amount of tricuspid regurgitation. Right ventricular systolic pressure is estimated to be elevated at 40-50mmHg. There is moderate pulmonary hypertension by echo. Pulmonic Valve The pulmonic valve is not well visualized. Great Vessels The aortic root is not well visualized. The inferior vena cava appeared normal and decreased > 50% with respiration (RAP 5-10 mmHg). Effusions There is no pericardial effusion. Incidental Findings No definite cardiac source of CVA/TIA noted on this particular trans- thoracic study. Consider AKSHAT if clinically indicated. May consider mobile cardiac telemetry monitoring (MCT) for ruling out transient AFIB. Patient in A Fib during the study. : NIITN HILL > Angella Casillas
[2017-03-29] MEDS ORDERED: NORMAL SALINE 1000 ML 1,000 ML IV PRN (14:34)
--- NOTE | 2017-03-29 14:47 | RADIOLOGY REPORT (SQ) ---
EXAM DESCRIPTION: MRI HEAD WITHOUT; MRA HEAD WITHOUT COMPLETED DATE/TIME: 03/29/2017 2:27 pm REASON FOR STUDY: new right sided flaccid; CVA COMPARISON: CT brain 03/28/2017 TECHNIQUE: Multiplanar imaging includes non-contrasted T1, T2, FLAIR, and diffusion with ADC map seq uences. Images stored on PACS. MRA exam [place] was also performed, source data and maximum intensity projected images were reviewed. LIMITATIONS: None. FINDINGS: ANATOMY: No congenital anomalies. Normal vascular flow voids. Pituitary fossa normal. CSF SPACES: Normal in size and contour. No hemorrhage. CEREBRUM: Large acute left MCA distribution infarct involving nearly the entire frontal lobe, the ent alfredo temporal lobe, and majority of the parietal lobe. There is local mass effect with sulcal effacem ent and effacement of the left sylvian fissure. There is 4 mm of [id number] midline shift. An old right bold watershed infarct involving the frontal lobe, parietal and posterior temporal regio ns with widespread encephalomalacia is present. POSTERIOR FOSSA: No signal alteration. No hemorrhage. No edema, masses or mass effect. Internal michele tory canals, cerebello-pontine angles, mastoids normal. DIFFUSION IMAGING: Positive for large acute left MCA distribution nonhemorrhagic infarct ORBITS: No masses. Post cataract surgery. PARANASAL SINUSES: No fluid levels. Mucosa normal. COW MRA: Source data demonstrates occlusion of the left middle cerebral artery perisylvian branches a nd distal branches. Left and right anterior cerebral arteries, bilateral posterior cerebral arteries demonstrate normal f low signal. Distal intracranial vertebral arteries and basilar artery demonstrate normal flow signal. 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 Faint flow signal is present in right MCA distribution branches likely related to retrograde flow t hrough the ophthalmic artery. These results were discussed with the patient's hospitalist physician attending. IMPRESSION: Extensive acute nonhemorrhagic left hemisphere infarct with mild [id number] subfalcin e shift and sulcal effacement. Acute occlusion of the left middle cerebral artery at the perisylvian branches. 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 EVIDENCE OF ACUTE STROKE: NO. TECHNICAL DOCUMENTATION: JOB ID: [id number]- All Rights Reserved
--- NOTE | 2017-03-29 14:47 | RADIOLOGY REPORT (SQ) ---
EXAM DESCRIPTION: MRI HEAD WITHOUT; MRA HEAD WITHOUT COMPLETED DATE/TIME: 03/29/2017 2:27 pm REASON FOR STUDY: new right sided flaccid; CVA COMPARISON: CT brain 03/28/2017 TECHNIQUE: Multiplanar imaging includes non-contrasted T1, T2, FLAIR, and diffusion with ADC map seq uences. Images stored on PACS. MRA exam [place] was also performed, source data and maximum intensity projected images were reviewed. LIMITATIONS: None. FINDINGS: ANATOMY: No congenital anomalies. Normal vascular flow voids. Pituitary fossa normal. CSF SPACES: Normal in size and contour. No hemorrhage. CEREBRUM: Large acute left MCA distribution infarct involving nearly the entire frontal lobe, the ent alfredo temporal lobe, and majority of the parietal lobe. There is local mass effect with sulcal effacem ent and effacement of the left sylvian fissure. There is 4 mm of vuth-au-raeug midline shift. An old right bold watershed infarct involving the frontal lobe, parietal and posterior temporal regio ns with widespread encephalomalacia is present. POSTERIOR FOSSA: No signal alteration. No hemorrhage. No edema, masses or mass effect. Internal michele tory canals, cerebello-pontine angles, mastoids normal. DIFFUSION IMAGING: Positive for large acute left MCA distribution nonhemorrhagic infarct ORBITS: No masses. Post cataract surgery. PARANASAL SINUSES: No fluid levels. Mucosa normal. COW MRA: Source data demonstrates occlusion of the left middle cerebral artery perisylvian branches a nd distal branches. Left and right anterior cerebral arteries, bilateral posterior cerebral arteries demonstrate normal f low signal. Distal intracranial vertebral arteries and basilar artery demonstrate normal flow signal. 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 Faint flow signal is present in right MCA distribution branches likely related to retrograde flow t hrough the ophthalmic artery. These results were discussed with the patient's hospitalist physician attending. IMPRESSION: Extensive acute nonhemorrhagic left hemisphere infarct with mild ukiz-ww-lfack subfalcin e shift and sulcal effacement. Acute occlusion of the left middle cerebral artery at the perisylvian branches. 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 EVIDENCE OF ACUTE STROKE: NO. TECHNICAL DOCUMENTATION: JOB ID: [id number] All Rights Reserved
[2017-03-29] MEDS ORDERED: INFLUENZA ADLT QUAD (36MOS+) 2017-18 VAC 0.5 ML SYR IM PRN (17:22)
--- NOTE | 2017-03-29 17:27 | PDOC PROGRESS REPORT ---
Subjective Progress Note for:: 03/29/17 Subjective:: Unable to obtain review of systems from patient secondary to obtundation Physical Exam Vital Signs: Temp Pulse Resp BP Pulse Ox 99.7 F 110 H 16 146/81 H 98 03/29/17 11:16 03/29/17 12:00 03/29/17 12:00 03/29/17 12:00 03/29/17 12:00 Intake & Output 03/28/17 03/29/17 03/30/17 06:59 06:59 06:59 Intake Total 220 0 Output Total 1 Balance 220 -1 Weight 63.9 kg Exam: General: Obtunded, no acute respiratory distress HEENT: AT/NC, left eye minimally reactive, oropharynx is moist, pink, no scleral icterus, no conjunctival injection Neck: No JVD, trachea midline Chest: Clear to auscultation bilaterally, no wheezes rhonchi or rales CV: Regular rate and rhythm, normal S1 and S2, no rub, or gallop; 4/6 sm rusb, 3 /6 sm apex Abdomen: Soft, nontender to palpation, nondistended, active bowel sounds; no rebound, rigidity, or guarding Extremities: No cyanosis, clubbing or edema Neuro: Right-sided flaccidity, questionable left-sided decerebrate posturing, obtunded Results Laboratory Results: 03/29/17 06:18 03/29/17 06:18 03/29/17 03/29/17 06:18 06:18 WBC 9.9 RBC 3.41 L Hgb 10.4 L Hct 30.2 L MCV 89 MCH 30.5 MCHC 34.4 RDW 15.8 H Plt Count 292 Seg Neutrophils % 83.1 H Lymphocytes % 12.8 L Monocytes % 3.1 Eosinophils % 0.0 Basophils % 1.0 Absolute Neutrophils 8.2 Absolute Lymphocytes 1.3 Absolute Monocytes 0.3 Absolute Eosinophils 0.0 Absolute Basophils 0.1 Sodium 136.3 L Potassium 4.1 Chloride 96 L Carbon Dioxide 32 H Anion Gap 8 BUN 18 Creatinine 0.89 Est GFR ( Amer) > 60 Est GFR (Non-Af Amer) > 60 Glucose 214 H Calcium 9.4 Triglycerides 125 Cholesterol 222.85 H LDL Cholesterol Direct 159 H VLDL Cholesterol 25.0 HDL Cholesterol 38 L Impressions: Chest X-Ray 03/28/17 00:00 IMPRESSION: Cardiomegaly with mild pulmonary vascular congestion but no pulmonary edema. Chronic lung changes. Head CT 03/28/17 00:00 IMPRESSION: Involutional changes of aging with chronic microvascular ischemia and old right occipital infarct. Cannot entirely exclude a small area of petechial hemorrhage in the anterior aspect of the left temporal lobe. See above discussion. EVIDENCE OF ACUTE STROKE: NO. Carotid Doppler Study 03/29/17 01:39 IMPRESSION: Limited evaluation of the right internal carotid artery secondary to patient motion. Recommend CTA or MRA for further characterization. There is significant plaque. There is no hemodynamically significant stenosis on the left. Assessment & Plan - Diagnosis (1) Acute cerebrovascular accident (CVA) Is this a current diagnosis for this admission?: Yes (2) Acute encephalopathy Is this a current diagnosis for this admission?: Yes (3) Atrial fibrillation with RVR Is this a current diagnosis for this admission?: Yes (4) Anticoagulated Is this a current diagnosis for this admission?: Yes (5) Atrial fibrillation Qualifiers: Atrial fibrillation type: chronic Qualified Code(s): I48.2 - Chronic atrial fibrillation Is this a current diagnosis for this admission?: Yes (6) Diabetes mellitus Qualifiers: Diabetes mellitus type: type 2 Diabetes mellitus complication status: with unspecified complications Diabetes mellitus senior care insulin use: unspecified senior care insulin use status Qualified Code(s): E11.8 - Type 2 diabetes mellitus with unspecified complications Is this a current diagnosis for this admission?: Yes (7) GERD (gastroesophageal reflux disease) Qualifiers: Esophagitis presence: esophagitis presence not specified Qualified Code(s) : K21.9 - Gastro-esophageal reflux disease without esophagitis Is this a current diagnosis for this admission?: Yes (8) History of DVT (deep vein thrombosis) Is this a current diagnosis for this admission?: Yes (9) Hypercholesterolemia Is this a current diagnosis for this admission?: Yes (10) Hypertension Qualifiers: Hypertension type: essential hypertension Qualified Code(s): I10 - Essential (primary) hypertension Is this a current diagnosis for this admission?: Yes (11) Valvular heart disease Is this a current diagnosis for this admission?: Yes Plan: Patient with known critical aortic stenosis (12) DNR (do not resuscitate) Is this a current diagnosis for this admission?: Yes - Time Time Spent with patient: 25-34 minutes Medications reviewed and adjusted accordingly: Yes Anticipated discharge: Hospice Within: within 24 hours - Plan Summary Plan Summary: Patient suffered a complete left severe hemispheric with mild left and right subfalcine shift and sulcal effacement, acute occlusion of the left middle cerebral artery, and patient has a 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 At this time, I have discussed this case with apparently, her son and power of traffic law attorney, and he is in agreement for comfort measures. He will discuss this with his sisters in regards to performing comfort measures here in the hospital or to returning their mother to her facility to pursue hospice at that time. He understands that patient may herniate. Patient remains a DNR/DNI.
[2017-03-29] MEDS ORDERED: SCOPOLAMINE HYDROBROMIDE 1.5 MG PATCH.TD72 TD ONE (19:00)
[2017-03-29] MEDS: MORPHINE SULFATE 10 MG/ML INJ IV PRN ×2 (19:26→22:44)
[2017-03-29] MEDS: LORAZEPAM INJ 2 MG/1 ML VIAL IV PRN (22:07)
[2017-03-29 22:55] VITALS: BP 94/83
[2017-03-30] MEDS: ATROPINE SULFATE 1% OPH SOLN 5 ML BOTTLE SL SCH ×4 (00:16→17:46)
[2017-03-30] MEDS: MORPHINE SULFATE 10 MG/ML INJ IV PRN ×7 (05:15→17:40)
[2017-03-30] MEDS ORDERED: LANSOPRAZOLE 15 MG TAB.RAP.DR PO SCH (06:00)
[2017-03-30] MEDS ORDERED: FENTANYL 25 MCG/HR PATCH.TD72 TD ONE (08:30)
[2017-03-30] MEDS: POLYVINYL ALCOHOL 1.4% OPH SOLN 15 ML OU SCH ×3 (13:07→17:46)
[2017-03-30] MEDS: LORAZEPAM INJ 2 MG/1 ML VIAL IV PRN ×2 (15:38→17:40)
[2017-03-30] MEDS ORDERED: MORPHINE SULFATE 10 MG/ML INJ IV PRN (18:45)
[2017-03-30] MEDS ORDERED: LORAZEPAM INJ 2 MG/1 ML VIAL IV PRN (18:45)
--- NOTE | 2017-03-30 18:51 | PDOC PROGRESS REPORT ---
Subjective Progress Note for:: 03/30/17 Subjective:: Patient is unresponsive at this point. She is surrounded by family Physical Exam Vital Signs: Temp Pulse Resp BP Pulse Ox 97.9 F 107 H 18 94/83 L 94 03/29/17 20:00 03/30/17 14:00 03/29/17 20:00 03/29/17 20:00 03/29/17 20:00 Intake & Output 03/29/17 03/30/17 03/31/17 06:59 06:59 06:59 Intake Total 220 25 Output Total 1 Balance 220 24 Weight 63.9 kg Exam: General: Obtunded, no acute respiratory distress HEENT: AT/NC, slightly dry mucosa Neck: No JVD, trachea midline Chest: Clear to auscultation bilaterally, no wheezes rhonchi or rales CV: Regular rate and rhythm, normal S1 and S2, no rub, or gallop; 4/6 sm rusb, 3 /6 sm apex Abdomen: Soft, nontender to palpation, nondistended, active bowel sounds; no rebound, rigidity, or guarding Extremities: No cyanosis, clubbing or edema Neuro: Right-sided flaccidity, questionable left-sided decerebrate posturing, obtunded Results Laboratory Results: 03/29/17 06:18 03/29/17 06:18 Impressions: Chest X-Ray 03/28/17 00:00 IMPRESSION: Cardiomegaly with mild pulmonary vascular congestion but no pulmonary edema. Chronic lung changes. Head CT 03/28/17 00:00 IMPRESSION: Involutional changes of aging with chronic microvascular ischemia and old right occipital infarct. Cannot entirely exclude a small area of petechial hemorrhage in the anterior aspect of the left temporal lobe. See above discussion. EVIDENCE OF ACUTE STROKE: NO. Brain MRI with MRA 03/29/17 00:00 IMPRESSION: Extensive acute nonhemorrhagic left hemisphere infarct with mild [id number] subfalcine shift and sulcal effacement. Acute occlusion of the left middle cerebral artery at the perisylvian branches. 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 EVIDENCE OF ACUTE STROKE: NO. Head MRI 03/29/17 00:00 IMPRESSION: Extensive acute nonhemorrhagic left hemisphere infarct with mild [id number] subfalcine shift and sulcal effacement. Acute occlusion of the left middle cerebral artery at the perisylvian branches. 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 EVIDENCE OF ACUTE STROKE: NO. Carotid Doppler Study 03/29/17 01:39 IMPRESSION: Limited evaluation of the right internal carotid artery secondary to patient motion. Recommend CTA or MRA for further characterization. There is significant plaque. There is no hemodynamically significant stenosis on the left. Assessment & Plan - Diagnosis (1) Acute cerebrovascular accident (CVA) Is this a current diagnosis for this admission?: Yes (2) Acute encephalopathy Is this a current diagnosis for this admission?: Yes (3) Atrial fibrillation with RVR Is this a current diagnosis for this admission?: Yes (4) Anticoagulated Is this a current diagnosis for this admission?: Yes (5) Atrial fibrillation Qualifiers: Atrial fibrillation type: chronic Qualified Code(s): I48.2 - Chronic atrial fibrillation Is this a current diagnosis for this admission?: Yes (6) Diabetes mellitus Qualifiers: Diabetes mellitus type: type 2 Diabetes mellitus complication status: with unspecified complications Diabetes mellitus long term care administrator insulin use: unspecified custodial insulin use status Qualified Code(s): E11.8 - Type 2 diabetes mellitus with unspecified complications Is this a current diagnosis for this admission?: Yes (7) GERD (gastroesophageal reflux disease) Qualifiers: Esophagitis presence: esophagitis presence not specified Qualified Code(s) : K21.9 - Gastro-esophageal reflux disease without esophagitis Is this a current diagnosis for this admission?: Yes (8) History of DVT (deep vein thrombosis) Is this a current diagnosis for this admission?: Yes (9) Hypercholesterolemia Is this a current diagnosis for this admission?: Yes (10) Hypertension Qualifiers: Hypertension type: essential hypertension Qualified Code(s): I10 - Essential (primary) hypertension Is this a current diagnosis for this admission?: Yes (11) Valvular heart disease Is this a current diagnosis for this admission?: Yes (12) DNR (do not resuscitate) Is this a current diagnosis for this admission?: Yes - Plan Summary Plan Summary: Continue comfort measures with morphine, Ativan, and atropine. Anticipate demise within the next 24-48 hours.
--- NOTE | 2017-04-03 09:52 | Death Summary ---
Summary Date : 03/30/17 Time of :: 20:15 Autopsy: No Resuscitation Status: Comfort Measures Only - Final Diagnosis (1) Acute cerebrovascular accident (CVA) Is this a current diagnosis for this admission?: Yes (2) Acute encephalopathy Is this a current diagnosis for this admission?: Yes (3) Atrial fibrillation with RVR Is this a current diagnosis for this admission?: Yes (4) Anticoagulated Is this a current diagnosis for this admission?: Yes (5) Atrial fibrillation Is this a current diagnosis for this admission?: Yes (6) Diabetes mellitus Is this a current diagnosis for this admission?: Yes (7) GERD (gastroesophageal reflux disease) Is this a current diagnosis for this admission?: Yes (8) History of DVT (deep vein thrombosis) Is this a current diagnosis for this admission?: Yes (9) Hypercholesterolemia Is this a current diagnosis for this admission?: Yes (10) Hypertension Is this a current diagnosis for this admission?: Yes (11) Valvular heart disease Is this a current diagnosis for this admission?: Yes (12) UTI (urinary tract infection) Is this a current diagnosis for this admission?: Yes Hospital Course:: Patient presented with acute syncope and right-sided flaccid paralysis. The symptoms are consistent with stroke. Initial CT was negative. MRI performed revealed a large hemispheric CVA. In discussion with her family they elected to make her comfort measures. Patient was placed on comfort measures and she in the company of her family. She was pronounced by 2 RNs. No autopsy was requested.
== END 2017-03-30 20:25 | disposition left against medical advice (07) | DRG 65 ==
LOC: ER 17:07 → UNDOADMIN 19:48 → EH 19:48 → 3S 21:10 → EH 03-29 01:15 → 3S 03-29 20:53
PROVIDERS: ADMIT Family Medicine; ATTEND Family Medicine
DX: I63.8 Other cerebral infarction (principal); N39.0 Urinary tract infection, site not specified; I38 Endocarditis, valve unspecified; G81.01 Flaccid hemiplegia affecting right dominant side; Z66 Do not resuscitate; I48.2 Chronic atrial fibrillation; K21.9 Gastro-esophageal reflux disease without esophagitis; E78.00 Pure hypercholesterolemia, unspecified; I10 Essential (primary) hypertension; M19.90 Unspecified osteoarthritis, unspecified site; I08.1 Rheumatic disorders of both mitral and tricuspid valves; F41.1 Generalized anxiety disorder; E11.8 Type 2 diabetes mellitus with unspecified complications; F32.9 Major depressive disorder, single episode, unspecified; E86.0 Dehydration; Z79.01 Long term (current) use of anticoagulants; Z86.718 Personal history of other venous thrombosis and embolism; Z90.49 Acquired absence of other specified parts of digestive tract; Z90.710 Acquired absence of both cervix and uterus; Z79.899 Other long term (current) drug therapy; Z88.2 Allergy status to sulfonamides; Z88.8 Allergy status to other drugs, medicaments and biological substances; Z88.3 Allergy status to other anti-infective agents; Z91.041 Radiographic dye allergy status; Z79.4 Long term (current) use of insulin
CPT/HCPCS: 36415; 51702; 70450; 70544; 70551; 71010; 80048; 80053; 80061; 80162; 81001; 82550; 82553; 82962; 83735; 84484; 85025; 85610; 85730; 87040; 87077; 87086; 87088; 87186; 93005; 93010; 93306; 93880; 96374; 99291; J1160; J1815; J2060; J2270; J3490; J7030; J7040